=== PATIENT | male | born 2000 | race African-American/Black ===

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

== ENCOUNTER 2021-02-08 12:27 | Emergency (ER) | payer OTHER ==
[2021-02-08] MEDS ORDERED: Ondansetron ODT 4 MG TAB ONE (13:14)
[2021-02-08 13:40] LABS: Bilirubin Negative (Negative); Blood, Urine Negative (Negative); Clarity Clear (Clear); Glucose, Urine (Dipstick) Normal (Negative); Ketone, Urine Negative (Negative); Leukocyte Negative Leu/uL (Negative); Nitrite Negative (Negative); Protein, Urine (Dipstick) 20 mg/dL (Neg-Trace); Specific Gravity, Urine 1.033 (1.002-1.036); pH, Urine 7.5 (5.0-9.0)
[2021-02-08 13:52] LABS: #Eosinphils 0.2 thou/uL (0.0-0.7); #Monocytes 0.5 thou/uL (0.11-0.59); #Neutrophils 6.4 thou/uL (1.40-6.50); %Basophils 0.3 % (0.0-1.0); %Lymphocytes 12.2 % (28.0-48.0); %Monocytes 5.8 % (0.0-4.0); %Neutrophils 79.7 % (31.0-61.0); Hemoglobin 14.7 g/dL (14.0-18.0); Mean Corpuscular HGB CONC 33.5 g/dL (32.0-36.0); Mean Corpuscular Hemoglobin 29.6 pg (25.0-35.0); Mean Corpuscular Volume 88.3 fL (78.0-98.0); Mean Platelet Volume 6.9 fL (7.4-10.4); Platelet Count 229 thou/uL (130-400); RBC Distribution Width 11.6 % (11.5-14.5); Red Blood Cell (RBC) Count 4.97 mill/uL (4.00-5.20)
[2021-02-08 14:10] LABS: ALT (SGPT) 96 U/L (8-55); AST (SGOT) 63 U/L (10-45); Albumin 4.2 g/dL (3.5-5.0); Alkaline Phosphatase 82 U/L (50-130); Anion Gap 11 mmol/L (10-20); BUN (Urea Nitrogen) 17 mg/dL (8.4-21.0); Bilirubin, Total 0.7 mg/dL (0.2-1.2); Calc. Creatinine Clearance 0 mL/min (70-130); Calcium 9.6 mg/dL (7.8-10.44); Carbon Dioxide 27 mmol/L (22-29); Chloride 102 mmol/L (98-107); Globulin 4.2 g/dL (2.4-3.5); Glucose 94 mg/dL (70-105); Lipase 20 U/L (8-78); Protein, Total 8.4 g/dL (6.0-8.3); Sodium 136 mmol/L (136-145)
[2021-02-08] MEDS ORDERED: Lidocaine 1% PF 5 ML VIAL ONE (15:28)
[2021-02-08] MEDS ORDERED: cefTRIAXone\\ROCEPHIN 500 MG VIAL ONE (15:28)
[2021-02-11 05:15] LABS: Chlam.trachomatis by PCR,Urine Not Detected (NotDetected)
== END 2021-02-08 15:49 | disposition home or self-care (01) ==
LOC: ERS 12:27
DX: N45.1 Epididymitis (principal); F17.290 Nicotine dependence, other tobacco product, uncomplicated
CPT/HCPCS: 36415; 74177; 76870; 80053; 81003; 83690; 85025; 87491; 87591; 93976; 96372; J0696; Q0162

== ENCOUNTER 2021-09-25 15:56 | Emergency (ER) | payer OTHER ==
[2021-09-25] MEDS ORDERED: cefTRIAXone\\ROCEPHIN 500 MG VIAL ONE (16:20)
[2021-09-25] MEDS ORDERED: Lidocaine 1% MPF 2 ML VIAL ONE (16:20)
[2021-09-25 16:42] LABS: Bilirubin Negative (Negative); Blood, Urine Negative (Negative); Clarity Clear (Clear); Glucose, Urine (Dipstick) Normal (Negative); Ketone, Urine Negative (Negative); Leukocyte 500 Leu/uL (Negative); Nitrite Negative (Negative); Protein, Urine (Dipstick) 10 mg/dL (Neg-Trace); RBC/HPF 0-3 HPF (0-3); Squamous Epithelial 0-3 HPF (0-3); Urobilinogen Normal mg/dL (Less than 2); WBC/HPF Greater than 50 HPF (0-3)
[2021-09-25 16:44] LABS: Bacteria/HPF 1+ HPF (None Seen)
[2021-09-26 16:44] LABS: Chlam.trachomatis by PCR,Urine Not Detected (NotDetected)
== END 2021-09-25 17:41 | disposition home or self-care (01) ==
LOC: ERS 15:56
DX: N34.1 Nonspecific urethritis (principal)
CPT/HCPCS: 81003; 81015; 87491; 87591; 96372; 99283; J0696

== ENCOUNTER 2023-09-23 13:57 | Emergency (ER) | payer OTHER, SELFPAY ==
[2023-09-23] MEDS ORDERED: Lidocaine 1% (PF) 30 ML VIAL ONE (14:47)
[2023-09-23] MEDS ORDERED: Boostrix 0.5 ML (Tdap) VIAL (>/=7 yrs of age) ONE (15:16)
[2023-09-23] MEDS ORDERED: Bacitracin 1 PK ONE (15:18)
== END 2023-09-23 15:50 | disposition home or self-care (01) ==
LOC: ERS 13:57
DX: S61.216A Laceration without foreign body of right little finger without damage to nail, initial encounter (principal); W26.0XXA Contact with knife, initial encounter; Y93.89 Activity, other specified; Y92.000 Kitchen of unspecified non-institutional (private) residence as the place of occurrence of the external cause; Z23 Encounter for immunization
CPT/HCPCS: 12001; 90471; 90715; J2001

== ENCOUNTER 2023-10-02 08:47 | Emergency (ER) | payer SELFPAY ==
[2023-10-02 09:56] LABS: Bacteria/HPF None Seen HPF (None Seen); Bilirubin Negative (Negative); Blood, Urine Trace (Negative); CAUTI Indications for Culture Dysuria,urgency,freq; Clarity Clear (Clear); Glucose, Urine (Dipstick) Normal (Negative); Ketone, Urine Negative (Negative); Leukocyte 25 Leu/uL (Negative); Nitrite Negative (Negative); Protein, Urine (Dipstick) 30 mg/dL (Neg-Trace); RBC/HPF 0-3 HPF (0-3); Specific Gravity, Urine 1.028 (1.002-1.036); Squamous Epithelial 0-3 HPF (0-3); Urobilinogen Normal mg/dL (Less than 2); WBC/HPF 21-50 HPF (0-3)
[2023-10-02 10:01] LABS: Urine Culture Reflex Yes Yes
[2023-10-02] MEDS ORDERED: cefTRIAXone (ROCEPHIN) 500 MG VIAL ONE (10:32)
[2023-10-02] MEDS ORDERED: Lidocaine 1% PF 5 ML VIAL ONE (10:32)
[2023-10-02 10:43] LABS: HIV (1/2) Antibody/Antigen NONREACTIVE (NonReactive); HIV 1/2 INDEX 0.05 S/CO (<1.00)
[2023-10-02 13:32] LABS: Syphilis Antibody Nonreactive (Nonreactive); Syphilis Antibody Index 0.04 S/CO (<1.00 Non-Reactive)
[2023-10-02 14:28] LABS: Chlam.trachomatis by PCR,Urine Not Detected (NotDetected); GC N.gonorrhoeae PCR,UrineVOID Not Detected (NotDetected)
== END 2023-10-02 10:55 | disposition home or self-care (01) ==
LOC: ERS 08:47
DX: S61.217D Laceration without foreign body of left little finger without damage to nail, subsequent encounter (principal); R30.0 Dysuria; J02.9 Acute pharyngitis, unspecified
CPT/HCPCS: 36415; 81001; 86780; 87081; 87086; 87389; 87430; 87491; 87591; 96372; 99283; J0696